=== PATIENT | female | born 1955 | race Caucasian/White ===

== ENCOUNTER → 2017-04-21 | Outpatient (CLI) | payer BC ==
[~2017-04-21] MED LIST: CALCTAB5 PO; MULT-506 PO; SIMV20TA2 PO; ZOLP5TAB6 PO
--- NOTE | 2017-04-21 16:29 | MAMMOGRAPHY REPORT ---
BILATERAL DIGITAL SCREENING MAMMOGRAM TOMOSYNTHESIS WITH CAD: 04/21/2017 CLINICAL HISTORY: Routine screening. Patient has no complaints. TECHNIQUE: Breast tomosynthesis in addition to standard 2D mammography was performed. Current study was also evaluated with a Computer Aided Detection (CAD) system. COMPARISON: Comparison is made to exams dated: 04/20/2016 mammogram, 04/17/2015 mammogram, 04/16/2014 m ammogram, 04/14/2013 mammogram, 04/13/2012 mammogram, and 04/08/2011 mammogram - [facility] enter. BREAST COMPOSITION: There are scattered areas of fibroglandular density in both breasts. FINDINGS: No suspicious masses, calcifications, or areas of architectural distortion are noted in ei ther breast. There has been no significant interval change compared to prior exams. IMPRESSION: ACR BI-RADS CATEGORY 1: NEGATIVE There is no mammographic evidence of malignancy. A 1 year screening mammogram is recommended. The pa tient will receive written notification of the results. Approximately 10% of breast cancers are not detected with mammography. A negative mammographic report should not delay biopsy if a clinically suggestive mass is present. Lindsey Pascal M.D. /:04/21/2017 14:44:06 Supervisor [employer] Inspection: Samuel Guardado, M, [facility] letter sent: Normal 1/2 BI-RADS Code: ACR BI-RADS Category 1: Negative
== END | disposition home or self-care (01) ==
LOC: C.MAMM 08:23
PROVIDERS: ATTEND Obstetrics & Gynecology
DX: Z12.31 Encounter for screening mammogram for malignant neoplasm of breast (principal)

== ENCOUNTER → 2017-06-07 | Outpatient (CLI) | payer BC | END | disposition home or self-care (01) | LOC: C.PAPS 12:24 | PROVIDERS: ATTEND Obstetrics & Gynecology | DX: Z01.419 Encounter for gynecological examination (general) (routine) without abnormal findings (principal) ==

== ENCOUNTER → 2017-07-12 | Outpatient (CLI) | payer BC ==
[2017-07-12 12:22] LABS: BASO % 0.5 %; BASO ABS # 0.03 K/uL (0-0.2); COMPLETE YES; EOS % 4.1 %; HEMATOCRIT 38.6 % (37-47); IG% 0.2 %; LYMPH % 23.5 %; LYMPH ABS # 1.48 K/uL (1.2-3.4); MEAN CELL VOLUME 86.9 fL (80-100); MEAN CORPUSCULAR HEMOGLOBIN 29.3 pg (25-34); MEAN CORPUSCULAR HGB CONC 33.7 g/dl (32-36); MEAN PLATELET VOLUME 11.3 fL (7.4-10.4); NEUT % 62.7 %; PLATELET COUNT 206 K/uL (130-400); RED BLOOD COUNT 4.44 M/uL (4.2-5.4)
[2017-07-12 13:30] LABS: ALT/SGPT 41 U/L (12-78); BLOOD UREA NITROGEN 16 mg/dl (7-18); CALCIUM 9.3 mg/dl (8.5-10.1); CARBON DIOXIDE 28 mmol/L (21-32); CHLORIDE 104 mmol/L (98-107); CHOLESTEROL 165 mg/dl (0-200); CREATININE 0.88 mg/dl (0.60-1.20); GLUCOSE 96 mg/dl (70-99); POTASSIUM 3.8 mmol/L (3.5-5.1); SODIUM 140 mmol/L (136-145); TRIGLYCERIDES 165 mg/dl (0-150); VERY LOW DENSITY LIPOPROT CALC 33 mg/dl
[2017-07-12 13:41] LABS: ALB/GLOB RATIO 1.2 (0.9-2); ALKALINE PHOSPHATASE 79 U/L (45-117); AST/SGOT 25 U/L (15-37); CHOLESTEROL/HDL RATIO 3.8; HDL CHOLESTEROL 43 mg/dl; LDL CHOLESTEROL CALCULATED 89 mg/dl
== END | disposition home or self-care (01) ==
LOC: C.LABBFT 07:23
PROVIDERS: ATTEND Internal Medicine
DX: E78.5 Hyperlipidemia, unspecified (principal)

== ENCOUNTER 2025-07-02 07:44 | Observation (INO) ==
--- NOTE | 2025-06-05 09:29 | PAT Medication Instructions ---
Medication Instructions Date of Service June 05, 2025 Home Medications Medication Instructions Recorded meloxicam 15 mg tablet 15 mg PO DAILY PRN pain #30 tabs 10/19/24 simvastatin 20 mg tablet 20 mg PO HS #90 tabs 05/03/25 zolpidem 5 mg tablet (Ambien) 5 mg PO HS PRN insomnia #90 tabs 05/21/25 multivitamin (Daily Multi-Vitamin tablet) 1 tab PO QAM calcium carbonate (Calcium 600) 600 mg PO QAM acetaminophen 500 mg tablet 1,000 mg PO Q6H PRN Pain meloxicam 15 mg tablet 15 mg PO DAILY PRN pain mupirocin 2 % topical ointment 1 applic topical BID PRN Rash escitalopram oxalate 10 mg tablet See Rx Instructions PO BID simvastatin 20 mg tablet 20 mg PO HS zolpidem 5 mg tablet (Ambien) 5 mg PO HS PRN insomnia omeprazole 20 mg capsule,delayed release 20 mg PO QAM ASK your surgeon for instructions meloxicam 15 mg tablet 15 mg PO DAILY PRN pain STOP taking 24 hours before surgery mupirocin 2 % topical ointment 1 applic topical BID PRN Rash DO NOT take the morning of surgery multivitamin (Daily Multi-Vitamin tablet) 1 tab PO QAM calcium carbonate (Calcium 600) 600 mg PO QAM Take morning of surgery With a small sip of water, OTHERWISE NOTHING TO EAT OR DRINK AFTER MIDNIGHT: acetaminophen 500 mg tablet 1,000 mg PO Q6H PRN Pain (if needed) escitalopram oxalate 10 mg tablet See Rx Instructions PO BID omeprazole 20 mg capsule,delayed release 20 mg PO QAM Take evening before surgery acetaminophen 500 mg tablet 1,000 mg PO Q6H PRN Pain (if needed) escitalopram oxalate 10 mg tablet See Rx Instructions PO BID simvastatin 20 mg tablet 20 mg PO HS zolpidem 5 mg tablet (Ambien) 5 mg PO HS PRN insomnia (if needed) Other Notes If you have any questions please call us at [phone] or [phone] or [phone] or [phone]
--- NOTE | 2025-06-12 11:37 | Anesthesiology Consultation ---
Date of Service June 12, 2025 Assessment & Plan (1) Encounter for pre-operative examination: Chart Review Chart Review: Acceptable Risk for Surgery and Patient seen in Pre Admission Testing - Patient is not an ideal OPJ candidate (per patient preference)- currently 23 hour obs Chlorhexidine allergy- no wipes given at PAT appt Per [facility] appt on 06/12/25, no recent illness/disease exposures, illness related symptoms, or recent illness/disease positive tests. Will leave to surgeon's discretion if preop Covid testing needed Teaching & Discussion Pre-Anesthesia Teaching/Discussion Notes: Instructed NPO after midnight before surgery,except medications with 15 cc of water. Medication instructions provided according to the [facility] guidelines. History Surgery Operation Date: 07/02/25 07:00 Proposed Procedures p Robotic Assisted Left Total Knee Arthroplasty - Claude Lopes, Height/Weight Height: 5 ft 4 in Weight: 74.5 kg Allergies Allergy/AdvReac Type Severity Reaction Status Date / Time chlorhexidine Allergy Mild Rash Verified 06/04/25 08:01 Medications Home Medications Medication Instructions Recorded Confirmed Last Taken multivitamin (Daily Multi-Vitamin 1 tab PO QAM 03/23/19 06/04/25 12/30/21 tablet) calcium carbonate (Calcium 600) 600 mg PO QAM 12/19/21 06/04/25 12/30/21 acetaminophen 500 mg tablet 1,000 mg PO Q6H PRN Pain 12/25/21 06/04/25 Unknown meloxicam 15 mg tablet 15 mg PO DAILY PRN pain #30 tabs 10/19/24 06/04/25 Unknown mupirocin 2 % topical ointment 1 applic topical BID PRN Rash 12/25/24 06/04/25 Unknown escitalopram oxalate 10 mg tablet See Rx Instructions PO BID 01/31/25 06/04/25 Unknown simvastatin 20 mg tablet 20 mg PO HS #90 tabs 05/03/25 06/04/25 Unknown zolpidem 5 mg tablet (Ambien) 5 mg PO HS PRN insomnia #90 tabs 05/21/25 06/04/25 Unknown omeprazole 20 mg capsule,delayed 20 mg PO QAM 06/04/25 06/04/25 Unknown release Past Medical History Medical History Anxiety Balance disorder improving with physical therapy PCP aware (pt gets q 6 month brain imaging due to lymphoma history- no issues on brain images per patient/PCP) Degenerative disc disease cervical and lumbar, ROM WNL per pt Eosinophilic esophagitis GERD (gastroesophageal reflux disease) well controlled and stable Hiatal hernia History of esophageal stricture with dilation (no swallowing issues currently- getting routinely EGD/colonoscopy November 2025) Hx of non-Hodgkin's lymphoma 2018 > stem cell treatment (with chemo) stable currently Hyperlipidemia Insomnia Osteoarthritis Exercise / Class Metabolic Activity II 4-5 Yardwork/Stairs/Walk up hill (one flight of stairs- no chest pain or SOB) Past Family History Family History Father History of colon polyps Lung cancer Cancer Mother Family history of deafness or hearing loss Family history of cardiac disorder Family history of colon cancer Colorectal cancer Cancer Heart disease Family/Other Arthritis Denies family history of Ovarian cancer Prostate cancer Myocardial infarction Bleeding disorder Past Surgical History Surgical History H/O autologous stem cell transplant (2019) 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 [place] History of biopsy Lt parotid mass History of cataract surgery R/L History of colonoscopy History of esophageal dilatation History of esophagogastroduodenoscopy History of removal of Port-a-Cath (01/09/21) Removal of Left Access Port(Left) - [place] Monterroso DO History of tonsillectomy History of tooth extraction History of tubal ligation S/P trigger finger release right hand Past Anesthesia History No Hx of Anesthesia Complications and No Family Hx of Anesthesia Complications History of PONV No Hx of PONV and No Hx of Motion Sickness Social History Smoking Status: Never smoker Do You Dip or Chew Tobacco: No Hx Alcohol Use: No Hx Substance Use: No substance use type: does not use Review of Systems - Possible blood transfusion with lymphoma treatments (2018) Patient denies chest pain, shortness of breath, dyspnea on exertion, cough, wheezing, palpitations. No hx of seizures, stroke, NC, apnea/snoring. No hx of blood clots Physical Exam Vital Signs VITALS BP 116/73 P 71 TEMP 97.6 SP02 97% RESP 16 Constitutional no acute distress ENMT Mouth: no TMJ clicking Thyromental Distance: < 3.5 Finger Breadths (3.0) Mallampati Class: III Full denture on top Missing bottom molars Crowns to side tooth Neck neck extension not limited Respiratory normal respiratory effort; no respiratory distress Auscultation: lungs clear to auscultation bilaterally; no wheezes Cardiovascular Rate/Rhythm: regular rate and regular rhythm Heart Sounds: no murmur Vessels: no carotid bruit Musculoskeletal Spine: no pain with cervical ROM Extremities: extremities normal to inspection Psychiatric Orientation: alert Lab Results Anesthesia Preop Results Results Anesthesia Widget: WBC 6.82 K/ul (4.8-10.8) 06/12/25 Hgb 12.4 g/dl (12.0-16.0) 06/12/25 Hct 35.6 % (37.0-47.0) L 06/12/25 Plt 192 K/uL (130-400) 06/12/25 Na 139 mmol/L (136-145) 06/12/25 K 3.5 mmol/L (3.5-5.1) 06/12/25 Cl 103 mmol/L (98-107) 06/12/25 CO2 30 mmol/L (21-32) 06/12/25 BUN 17 mg/dl (6-23) 06/12/25 Creat 0.80 mg/dl (0.6-1.2) 06/12/25 Glucose Level 109 mg/dl (70-99(Fasting)) H 06/12/25 PT 10.3 Seconds (9.0-12.0) 06/12/25 PTT 24 Seconds (21-31) 06/12/25 INR 1.0 (0.9-1.1) 06/12/25 Blood Type O Positive 06/12/25 Antibody Screen NEGATIVE 06/12/25 Testing Electrocardiogram Date: 06/12/25 Findings: + NSR @ (70bpm) Low voltage QRS at 70bpm Chest X-Ray Date: 06/12/25 Findings: + NAD The cardiomediastinal silhouette is top normal for projection noting mild atherosclerotic calcification of the thoracic aorta. There is mild elevation of the left hemidiaphragm with mild left basilar atelectasis. The lungs and pleural spaces are otherwise clear. There is no pneumothorax. The skeletal structures are osteopenic. The bony thorax appears intact. Atherosclerotic calcification is seen in the left carotid bulb. Echocardiogram Date: 08/11/24 EF: 50-55% RWMA: + none Other Findings: + diastolic dysfunction (Grade I ); no LVH Valvular Disease: + no significant valvular disease This was essentially a normal study Compared to prior ECHO report on 10/18/2019- there is no significant change per cardio Other Testing Event monitor 08/24/24= Occ PACs. No pairs or PSVT. Occ PVCs. No pairs, grouped beating or NSVT. ST (max HR 128bpm). SB (min HR 55bpm). No pauses >2 seconds or high grade AV block. No symptoms reported. Study is nondiagnostice for symptom correlation Carotid Duplex 08/11/24= <50% stenosis in the bilateral ICAs. Antegrade flow in the bilateral vertebral arteries.
--- NOTE | 2025-06-28 08:00 | History & Physical Report ---
Date of Service June 28, 2025 Assessment & Plan (1) Osteoarthritis of left knee: We will proceed with a left total knee arthroplasty. Postoperatively, she will be started on aspirin for DVT prophylaxis and kept overnight in the hospital for postop medical management. She plans to use the energy physical therapy after discharge. History of Present Illness Chief Complaint: Osteoarthritis left knee. Primary Care Provider: Sophia Jo MD Alisa is a pleasant 70-year-old female who has been dealing with left knee arthritis for years. I have been giving her injections. Unfortunately, the injections are no longer helping. The last injection only lasted a couple of weeks. She says she cannot live with her left knee the way it is anymore. X-rays have shown progressively worse arthritis in the medial compartment of her left knee. After failed conservative treatment, she has elected to proceed with a left total knee arthroplasty. Allergies Allergy/AdvReac Type Severity Reaction Status Date / Time chlorhexidine Allergy Mild Rash Verified 06/04/25 08:01 Home Medications Medication Instructions Recorded Confirmed Type multivitamin (Daily Multi-Vitamin 1 tab PO QAM 03/23/19 06/04/25 History tablet) calcium carbonate (Calcium 600) 600 mg PO QAM 12/19/21 06/04/25 History acetaminophen 500 mg tablet 1,000 mg PO Q6H PRN Pain 12/25/21 06/04/25 History meloxicam 15 mg tablet 15 mg PO DAILY PRN pain #30 tabs 10/19/24 06/04/25 Rx mupirocin 2 % topical ointment 1 applic topical BID PRN Rash 12/25/24 06/04/25 History escitalopram oxalate 10 mg tablet See Rx Instructions PO BID 01/31/25 06/04/25 History simvastatin 20 mg tablet 20 mg PO HS #90 tabs 05/03/25 06/04/25 Rx zolpidem 5 mg tablet (Ambien) 5 mg PO HS PRN insomnia #90 tabs 05/21/25 06/04/25 Rx omeprazole 20 mg capsule,delayed 20 mg PO QAM 06/04/25 06/04/25 History release Past Med/Surg History Problem List Encounter for pre-operative examination Balance disorder Osteoarthritis of right knee AC joint arthropathy Osteopenia History of diffuse large B-cell lymphoma Greater trochanteric bursitis of right hip Osteoarthritis of knees, bilateral H/O autologous stem cell transplant (06/11/20) [facility], 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, 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) GERD (gastroesophageal reflux disease) Anxiety (Acute) Arthritis (Acute) Eczema (Acute) Eosinophilic esophagitis (Acute) Hyperlipidemia (Acute) Insomnia (Acute) Family history of colon cancer Medical History Balance disorder improving with physical therapy PCP aware (pt gets q 6 month brain imaging due to lymphoma history- no issues on brain images per patient/PCP) GERD (gastroesophageal reflux disease) well controlled and stable Eosinophilic esophagitis Insomnia Hx of non-Hodgkin's lymphoma 2018 > stem cell treatment (with chemo) stable currently Degenerative disc disease cervical and lumbar, ROM WNL per pt Hiatal hernia History of esophageal stricture with dilation (no swallowing issues currently- getting routinely EGD/colonoscopy November 2025) Osteoarthritis Anxiety Hyperlipidemia Surgical History S/P trigger finger release right hand H/O autologous stem cell transplant (2019) [facility], 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, 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) History of cataract surgery R/L History of removal of Port-a-Cath (01/09/21) Removal of Left Access Port(Left) - [place] Monterroso DO History of autologous stem cell transplant 05[place] [facility] [place] History of biopsy Lt parotid mass History of tooth extraction History of tonsillectomy History of esophageal dilatation H/O excision of mass tumor removed from behind left eye - April 17 2019 > [place] History of esophagogastroduodenoscopy History of colonoscopy History of tubal ligation Family History Father History of colon polyps Lung cancer Cancer Mother Family history of deafness or hearing loss Family history of cardiac disorder Family history of colon cancer Colorectal cancer Cancer Heart disease Family/Other Arthritis Denies family history of Ovarian cancer Prostate cancer Myocardial infarction Bleeding disorder Social History Smoking Status: Never smoker Second Hand Exposure: No; Do You Dip or Chew Tobacco: No; Hx Alcohol Use: No Hx Substance Use: No Preferred Language: Kyrgyz Communication Ability: Effective Visual Impairment: No Limitations Hearing Ability: Normal Traffic Recorder Required: No Beliefs That Will Affect Care: None marital status: Current Living Situation: Spouse Current Living Situation Comment: LIVES WITH SPOUSE, SON current occupational status: retired Feels Safe at Home: Yes Childhood Exposure to Second-Hand Smoke: Yes caffeine: Yes Dental Care, Regularly: Yes Physical Activity Frequency: Daily Seatbelt Use: always Sunscreen Use: Yes Assistive Devices: Denture - Upper and Glasses Review of Systems All systems reviewed & are unremarkable except as noted in HPI & below. Physical Exam . Constitutional WD/WN, vitals as above Eyes PERRL, conjunctivae normal, anicteric sclerae ENMT external ear and nose normal, oropharynx normal Neck trachea midline, no thyromegaly Respiratory normal respiratory effort Cardiovascular RRR, no murmur, no edema Gastrointestinal (Abdomen) normal bowel sounds, soft, nontender, no hepatosplenomegaly Psychiatric A+Ox3, euthymic affect Results & Data Results & Data Laboratory Results . Diagnostic Findings . PG Care Time/CCT Total # of Minutes Spent Total Time Spent with Patient: Total time spent is greater than 50% in coordination of care (as documented) at patient's floor/unit and/or counseling patient: Coding Level of Care Code None Diagnoses Osteoarthritis of left knee M17.12
[~2025-07-02 07:44] MED LIST changes: +BUPIVACAINE 0.5 % 5 MG/1 ML PF 10ML VIAL ONE; -CALCTAB5 PO; -MULT-506 PO; +ROPIVACAINE 0.5% 5 MG/ML 30 ML VIAL ONE; -SIMV20TA2 PO; -ZOLP5TAB6 PO
[2025-07-02] MEDS ORDERED: ONDANSETRON INJ 2 MG/ML 2 ML VIAL ONE (07:57)
[2025-07-02] MEDS ORDERED: LIDOCAINE 2% 2 ML VIAL/AMP(20MG/ML) INFIL ONE (07:57)
[2025-07-02] MEDS ORDERED: PROPOFOL IV EMULSION 10 MG/ML 20 ML VIAL IV ONE (07:57)
[2025-07-02] MEDS ORDERED: GLYCOPYRROLATE 0.2 MG/ML VIAL ONE (07:57)
[2025-07-02] MEDS ORDERED: KETAMINE HCL 10MG/ML SYR ONE (07:58)
[2025-07-02] MEDS ORDERED: MIDAZOLAM HCL 1 MG/ML 2ML VIAL ONE (07:58)
[2025-07-02] MEDS ORDERED: ePHEDrine sulfate 50 MG/5 ML SYR ONE (07:59)
[2025-07-02] MEDS ORDERED: PHENYLEPHRINE 100MCG/ML 5ML SYR ONE ×2 (07:59→10:41)
[2025-07-02] MEDS: LR 500ML BOLUS, THEN 15ML/HR IV SCH (08:14)
[2025-07-02] MEDS: dexAMETHasone**PF** 10 MG/ML VIAL IV SCH (08:14)
[2025-07-02] MEDS: ACETAMINOPHEN 500 MG TAB PO SCH ×2 (08:14→15:05)
[2025-07-02] MEDS: GABAPENTIN 300 MG CAP PO SCH (08:14)
[2025-07-02] MEDS: FAMOTIDINE 20 MG TAB PO SCH (08:15)
--- NOTE | 2025-07-02 08:59 | History & Physical Bridge Note ---
Date of Service July 02, 2025 History & Physical Bridge Note I have examined the patient, reviewed the History & Physical and in the interval since the performance of the History & Physical I have noted the following changes of clinical significance: no changes noted
[2025-07-02] MEDS: TRANEXAMIC ACID 1,000 MG **IV Pre-op IV SCH (09:28)
[2025-07-02] MEDS ORDERED: ATROPINE SULFATE 0.1 MG/ML 10ML SYR IV PRN (09:38)
[2025-07-02] MEDS ORDERED: ONDANSETRON INJ 2 MG/ML 2 ML VIAL IV PRN ×2 (09:38→14:44)
[2025-07-02] MEDS: ROPIV 0.5% 246mg, Ketorolac 30mg, EPINEPHrine 0.5mg in NSS INFIL SCH (10:20)
[2025-07-02] MEDS: ORTHO JOINT ANESTHETIC ONE (10:20)
--- NOTE | 2025-07-02 10:42 | Operative Report ---
PG Post Operative Report Pre & Post Diagnosis Operation Date: 07/02/25 10:00 Pre-Op Diagnosis: Left Knee Osteoarthritis Post-Op Diagnosis: Left Knee Osteoarthritis I identified the patient and participated in the time-out.: Yes Procedure Operation Date: 07/02/25 10:00 Actual Procedures p Robotic Assisted Left Total Knee Arthroplasty, Uncemented(Left) - Claude Lopes DO Surgeon Claude Lopes DO Rigging Loft Mechanic Mervat Phillip PA-C Estimated Blood Loss 30 Findings Consistent with Post-Op Diagnosis Specimens Left femoral and tibial bone Description of Procedure Implants used: I used a [employer] total knee arthroplasty system with a size 5 standard PS femur, C tibia, and a size 10 CPS polyethylene bearing. All components were press-fit in place. Saskia arrived [facility] for the above procedure. She was seen in the preoperative holding area and the operative extremity was identified and signed. She was given a preoperative antibiotic, TXA, a spinal anesthetic and an adductor nerve block. She was taken back to the operating room and laid on the table in supine position. She was given basic sedation. The operative knee was then prepped and draped in sterile fashion. A timeout was done, and the patient and the operative extremity was properly identified. A midline incision was made directly over the patella. Dissection was taken down to the extensor mechanism. A medial parapatellar arthrotomy was used. The medial retinaculum was released and the fat pad was mostly excised. The knee was flexed and the ACL, PCL, and meniscus were removed. The alignment of the knee replacement was assisted with a [employer] robotic knee. The femoral array was pinned in the distal femur and the tibial array was pinned using a percutaneous technique in the upper shaft of the tibia. The robot was appropriately calibrated and the structure of the knee was mapped out. The components were then manipulated on the screen to account for any malalignment and to assist in gap balancing. Once I was happy with the placement of the components on the screen, a distal femoral cutting guide was brought in place. The distal femur was then resected. The femur measured to be a size 5. A 4-in-1 cutting block was then put into place by the robot and 2 peg holes were drilled. The 4-in-1 cutting block was then impacted into place and anterior, posterior, and chamfer cuts were made. The cutting block was then brought down to the tibia and pinned into place. The proximal tibia was then resected. The posterior aspect of the knee was then opened up and any additional meniscus fragments and osteophytes were removed. The tibia measured to be a size C. The tibial plate was then placed in the appropriate rotation and the tibia was drilled and punched. Trial components were then placed. A size 10 CPS polyethylene insert was then trialed. The knee was brought through a full range of motion and felt to be stable. Trial components were then removed. The surrounding soft tissues were injected with 100 cc of an orthopedic pain control cocktail. All components were then press-fit into place. The final polyethylene insert was then snapped into place. The tourniquet was deflated. Hemostasis was obtained. A dilute betadyne lavage was then done for 3 minutes. The joint was then irrigated with normal saline solution. The medial parapatellar arthrotomy was then closed with #1 Vicryl suture. The skin was closed with 2-0 Vicryl, 3-0V lock suture, and [place] Zipline. A soft compressive dressing was placed. She was then transferred to a hospital bed and taken to the postanesthesia care unit in stable condition. She tolerated the procedure well. Mervat Phillip PA-C, was present for the entire procedure. He was critical for patient positioning, prepping, draping, retraction exposure, wound closure and application of sterile dressing. I attest to the content of the Intraoperative Record and any orders documented therein. Any exceptions are noted below.
--- NOTE | 2025-07-02 11:44 | Anesthesiology Progress Note ---
Date of Service July 02, 2025 Anesthesia Post Procedure Vital Signs Vital Signs: Temp Pulse Pulse Resp BP Pulse Ox O2 Del Method 07/02/25 11:35 97.7 F 83 19 114/75 97 Room Air 07/02/25 11:25 87 14 119/70 98 Room Air 07/02/25 11:15 88 20 128/72 97 Room Air 07/02/25 11:07 97.3 F L 90 12 106/60 96 Oxymask 07/02/25 08:08 97.9 F 78 18 147/76 H 98 Room Air O2 Flow Rate 07/02/25 11:35 07/02/25 11:25 07/02/25 11:15 07/02/25 11:07 6 07/02/25 08:08 Pain Intensity Left Knee: Pain Intensity: 2 Transfer of Care Handoff Completed per policy Notes Mental Status: alert / awake / arousable and participated in evaluation Patient Amnestic to Procedure: Yes Nausea / Vomiting: adequately controlled Pain: adequately controlled Airway Patency, RR, SpO2: stable & adequate BP & HR: stable & adequate Hydration State: stable & adequate Neuraxial Anesthesia: was administered and sensory block is resolving Anesthetic Complications: no major complications apparent and Pt Satisfied with anesthetic care
--- NOTE | 2025-07-02 14:09 | XRay Report ---
XR knee LT 1 or 2V routine CLINICAL HISTORY: Surgical Post Op COMPARISON: None FINDINGS: Left knee prosthesis shows no hardware complication. There is expected soft tissue gas. IMPRESSION: Unremarkable postoperative exam. ACT 112: Negative or not required by law. Electronically signed by: Hair Senior M.D. 07/02/2025 2:07 PM
[2025-07-02] MEDS ORDERED: ZOLPIDEM TARTRATE 5 MG TAB PO PRN (14:44)
[2025-07-02] MEDS ORDERED: MAGNESIUM HYDROXIDE SUSP 30 ML UDC PO PRN (14:44)
[2025-07-02] MEDS ORDERED: diphenhydrAMINE Capsule 25 MG CAP PO PRN (14:44)
[2025-07-02] MEDS ORDERED: METOCLOPRAMIDE HCL INJ 5 MG/ML 2 ML VIAL IV PRN (14:44)
[2025-07-02] MEDS ORDERED: diphenhydrAMINE 50 MG/ML VIAL IV PRN (14:44)
[2025-07-02] MEDS ORDERED: NALOXONE HCL 0.4 MG/1 ML VIAL/CARP IV PRN (14:44)
[2025-07-02] MEDS: SODIUM CHLORIDE 0.9% 1,000 ML IV SCH (15:00)
[2025-07-02] MEDS: KETOROLAC TROMETHAMINE 15 MG/ML VIAL IV SCH (15:05)
[2025-07-02] MEDS: LR 60ML/HR IV SCH (15:09)
[2025-07-02] MEDS: DOCUSATE SODIUM 100 MG CAP PO SCH (20:08)
[2025-07-02] MEDS: SENNA 8.6 MG TAB PO SCH (20:08)
[2025-07-02] MEDS: SIMVASTATIN 20 MG TAB PO SCH (20:09)
[2025-07-02] MEDS ORDERED: ESCITALOPRAM OXALATE 10 MG TAB PO PRN (21:00)
[2025-07-03 03:37] VITALS: O2SAT 94
[2025-07-03 07:42] VITALS: BP 116/77; PULSE 64; RESP 16; TEMP 97.7
[2025-07-03] MEDS: MULTIVITAMIN TAB PO SCH (09:44)
[2025-07-03] MEDS: ESCITALOPRAM OXALATE 10 MG TAB PO SCH (09:44)
--- NOTE | 2025-07-03 09:52 | Orthopedic Progress Note ---
Date of Service July 03, 2025 Assessment & Plan (1) Status post total left knee replacement: * Continue Current Treatment * Disposition: Home * Daily treatment: Physical Therapy/ Occupational Therapy per protocol * Weight bearing status: as tolerated * Continue to monitor for ABLA * Pain control * DVT prophylaxis, ASA * Office/hospital f/u 2 weeks for progress check and staple/suture removal * Plan for discharge today pending PT/OT clearance Subjective Active Problems: S/p left total knee arthroplasty POD 1 70 y/o female s/p left total knee arthroplasty. Doing well overall, pain managed and improved function. Denies fever/chills, chest pain/SOB, nausea/vomiting. Otherwise no complaints. . Review of Systems All systems reviewed & are unremarkable except as noted in HPI & below. Physical Exam * General: Alert and oriented, no acute distress * Constitutional: well-developed, well-nourished. * Respiratory: Normal respiratory effort, no distress * Gastrointestinal: No tenderness to palpation, no rigidity or guarding. * Skin: No rash or lesion. * Neurologic: Grossly normal * Musculoskeletal: Left knee surgical dressing clean, dry and in place, not removed for exam. Otherwise no obvious deformity or overlying skin changes RLE. Diffuse TTP distal thigh and knee region. Otherwise no specific tenderness of proximal thigh, lower leg, foot/ankle. AROM knee flexion 100 degrees. AROM foot/ankle intact. Sensation intact plantar/dorsal foot. Brisk capillary refill. . Results & Data Results & Data Laboratory Results . Diagnostic Findings Knee X-Ray 07/02/25 11:10 XR knee LT 1 or 2V routine CLINICAL HISTORY: Surgical Post Op COMPARISON: None FINDINGS: Left knee prosthesis shows no hardware complication. There is expected soft tissue gas. IMPRESSION: Unremarkable postoperative exam. ACT 112: Negative or not required by law. Electronically signed by: Hair Senior M.D. 07/02/2025 2:07 PM . PG Care Time/CCT Total # of Minutes Spent Total Time Spent with Patient: Total time spent is greater than 50% in coordination of care (as documented) at patient's floor/unit and/or counseling patient: Coding Level of Care Code 10490 Post Operative Follow-Up Diagnoses Status post total left knee replacement Z96.652
== END 2025-07-03 11:08 | disposition home or self-care (01) ==
LOC: PACUINP 07:44 → ASU 07:44 → 3N 14:38